=== PATIENT | male | born 1960 | race Caucasian/White ===

== ENCOUNTER 2023-02-08 10:15 | Day surgery (SDC) | payer OTHER ==
[2023-01-24 17:24] VITALS: BMI 35.2
[~2023-02-08 10:15] MED LIST: CEFAZOLIN SODIUM 2 GM in DEXTROSE 5%-WATER 100 ML IVPB ONE; TRANEXAMIC ACID 1000 MG/10 ML VIAL IVPUSH ONE
[2023-02-08] MEDS: CELECOXIB 200 MG CAPSULE PO ONE ×2 (11:10→21:03)
[2023-02-08] MEDS: GABAPENTIN 300 MG CAPSULE PO ONE ×2 (11:10→21:03)
[2023-02-08] MEDS ORDERED: BUPIVACAINE LIPOSOME/PF (EXPAREL) 266 MG/20 ML VIAL ONE (11:23)
[2023-02-08] MEDS ORDERED: BUPIVACAINE HCL/PF 0.5% (5MG/ML) 10 ML VIAL ONE ×2 (11:23)
[2023-02-08] MEDS ORDERED: ACETAMINOPHEN INJECTION 100 ML IVPB ONE (11:23)
[2023-02-08] MEDS ORDERED: MIDAZOLAM HCL 2 MG/2 ML SINGLE DOSE VIAL ONE ×3 (11:43→13:26)
[2023-02-08] MEDS ORDERED: VANCOMYCIN 1,000 MG VIAL (RESTRICTED TO ID ONLY) ONE (12:17)
[2023-02-08] MEDS ORDERED: ceFAZolin SODIUM 1 GM VIAL ONE ×2 (12:17→12:58)
[2023-02-08] MEDS ORDERED: ONDANSETRON 4 MG/2 ML VIAL IVPUSH PRN (12:24)
[2023-02-08] MEDS ORDERED: LACTATED RINGERS SOLUTION 1,000 ML IV SCH ×2 (12:30→15:00)
[2023-02-08] MEDS ORDERED: ALBUTEROL SO4 HFA INHALER IH PRN (14:46)
[2023-02-08] MEDS: ACETAMINOPHEN 325 MG TABLET (FP) PO PRN (15:40)
[2023-02-08] MEDS: oxyCODONE HCL 5 MG TABLET PO PRN ×3 (15:40→21:03)
[2023-02-08] MEDS: CEFAZOLIN SODIUM 2 GM in DEXTROSE 5%-WATER 100 ML IVPB SCH (21:02)
[2023-02-08] MEDS: SENNOSIDES/DOCUSATE COMBO (SENNA PLUS) TABLET (UD) PO SCH (21:02)
[2023-02-08] MEDS: ATORVASTATIN CA 10 MG TABLET (FP) PO SCH (21:03)
[2023-02-08] MEDS ORDERED: SODIUM CHLORIDE 100 ML IVPB ONE (22:58)
[2023-02-09] MEDS: ACETAMINOPHEN 325 MG TABLET (FP) PO PRN ×2 (01:32→07:30)
[2023-02-09] MEDS: oxyCODONE HCL 5 MG TABLET PO PRN ×5 (01:32→21:21)
[2023-02-09] MEDS ORDERED: HYDROmorphone HCl 2 MG/ML VIAL ONE (03:28)
[2023-02-09] MEDS ORDERED: HYDROmorphone HCl 2 MG/ML VIAL IVPB PRN (03:35)
[2023-02-09] MEDS: CEFAZOLIN SODIUM 2 GM in DEXTROSE 5%-WATER 100 ML IVPB SCH (05:50)
[2023-02-09] MEDS: ASPIRIN 325 MG TABLET PO SCH (07:30)
[2023-02-09 08:33] LABS: HEMATOCRIT 40.6 % (35.4-49); HEMOGLOBIN 13.5 G/dL (11.7-16.9); MCHC 33.3 g/dl (32.0-35.9); MEAN CELL VOLUME 93.3 fl (80-96); MEAN PLT VOLUME 9.6 fl (7.5-11.1); RBC 4.35 10^6/uL (4.00-5.60); RDW 14.3 % (11.9-15.9); WHITE BLOOD COUNT 8.9 10^3/uL (4.0-10.8)
[2023-02-09] MEDS: SENNOSIDES/DOCUSATE COMBO (SENNA PLUS) TABLET (UD) PO SCH ×2 (09:11→21:21)
[2023-02-09] MEDS: PANTOPRAZOLE 40 MG TABLET PO SCH (09:11)
[2023-02-09] MEDS: MULTIVITAMINS (DAILY MVI) TABLET (FP) PO SCH (09:11)
[2023-02-09] MEDS: prednisoLONE ACETATE 1% OPHTH SUSP 5 ML BOTTLE OS SCH (10:58)
[2023-02-09] MEDS: ATORVASTATIN CA 10 MG TABLET (FP) PO SCH (21:21)
[2023-02-09 22:24] VITALS: RESP 17
[2023-02-10] MEDS: ACETAMINOPHEN 325 MG TABLET (FP) PO PRN (08:11)
[2023-02-10] MEDS: ASPIRIN 325 MG TABLET PO SCH (08:12)
[2023-02-10 08:26] LABS: HEMATOCRIT 38.2 % (35.4-49); HEMOGLOBIN 12.6 G/dL (11.7-16.9); MCHC 33.1 g/dl (32.0-35.9); MEAN CELL VOLUME 93.7 fl (80-96); MEAN PLT VOLUME 9.5 fl (7.5-11.1); PLATELET COUNT 146.9 10^3/uL (134-434); RBC 4.08 10^6/uL (4.00-5.60); RDW 14.2 % (11.9-15.9)
[2023-02-10 10:07] VITALS: TEMP 98.6
[2023-02-10] MEDS: MULTIVITAMINS (DAILY MVI) TABLET (FP) PO SCH (10:22)
[2023-02-10] MEDS: PANTOPRAZOLE 40 MG TABLET PO SCH (10:22)
[2023-02-10] MEDS: oxyCODONE HCL 5 MG TABLET PO PRN (10:23)
[2023-02-10] MEDS: prednisoLONE ACETATE 1% OPHTH SUSP 5 ML BOTTLE OS SCH (10:24)
[2023-02-10] MEDS: SENNOSIDES/DOCUSATE COMBO (SENNA PLUS) TABLET (UD) PO SCH (10:24)
[2023-02-10] MEDS: ATORVASTATIN CA 10 MG TABLET (FP) PO SCH (12:08)
[2023-02-10 14:21] VITALS: BP 126/47; PULSE 66
== END 2023-02-10 14:37 ==
LOC: FASUSAT 10:15 → FM/S 15:40 → FASUSAT 02-10 14:37
PROVIDERS: ATTEND Orthopaedic Surgery
PROC: 8E0Y0CZ Robotic Assisted Procedure of Lower Extremity, Open Approach (ICD-10-PCS; 2023-02-08)
PROC: 0SRD0JA Replacement of Left Knee Joint with Synthetic Substitute, Uncemented, Open Approach (ICD-10-PCS; principal; 2023-02-08 13:13)
DX: M17.12 Unilateral primary osteoarthritis, left knee (principal); J45.909 Unspecified asthma, uncomplicated; E66.9 Obesity, unspecified; Z68.35 Body mass index [BMI] 35.0-35.9, adult; Z87.891 Personal history of nicotine dependence
CPT/HCPCS: 20985; 27447; C1776; S2900; 36415; 73560-TC-LT-FY; 85027; 94760; 97010-GP; 97116-GP; 97162-GP; C1713

== ENCOUNTER 2023-07-19 07:06 | Day surgery (SDC) | payer OTHER ==
[2023-07-14 17:14] VITALS: BMI 35.2
[2023-07-19] MEDS ORDERED: BUPIVACAINE HCL/PF 0.5% (5 MG/ML) 30 ML VIAL IJ ONE (08:05)
[2023-07-19] MEDS ORDERED: BUPIVACAINE LIPOSOME/PF (EXPAREL) 266 MG/20 ML VIAL ONE (08:06)
[2023-07-19] MEDS ORDERED: MIDAZOLAM HCL 2 MG/2 ML SINGLE DOSE VIAL ONE ×3 (08:06→10:50)
[2023-07-19] MEDS ORDERED: VANCOMYCIN 1,000 MG VIAL (RESTRICTED TO ID ONLY) ONE (08:22)
[2023-07-19] MEDS ORDERED: ceFAZolin SODIUM 1 GM VIAL ONE ×2 (08:23→09:45)
[2023-07-19] MEDS ORDERED: DEXAMETHASONE SOD PHOSPHATE/PF 10 MG/ML SDV ONE (08:44)
[2023-07-19] MEDS ORDERED: BUPIVACAINE HCL/PF 0.5% (5MG/ML) 10 ML VIAL ONE (09:18)
[2023-07-19] MEDS ORDERED: PROPOFOL 40 ML ONE (09:19)
[2023-07-19] MEDS ORDERED: CEFAZOLIN 2 GM in DEXTROSE 5%-WATER - 50 ML IVPB ONE (09:30)
[2023-07-19] MEDS ORDERED: TRANEXAMIC ACID 1000 MG/10 ML VIAL IVPUSH ONE (09:30)
[2023-07-19] MEDS ORDERED: ONDANSETRON 4 MG/2 ML VIAL ONE (10:14)
[2023-07-19] MEDS ORDERED: ePHEDrine SULFATE 50 MG/1 ML AMPULE ONE (10:14)
[2023-07-19] MEDS ORDERED: PHENYLEPHRINE HCL 10 MG/1 ML SINGLE DOSE VIAL ONE (10:17)
[2023-07-19] MEDS ORDERED: ONDANSETRON 4 MG/2 ML VIAL IVPUSH PRN ×2 (11:28→11:38)
[2023-07-19] MEDS ORDERED: MAG HYDROX/AL HYDROX/SIMETH 30 ML UNIT-DOSE CUP PO PRN (11:28)
[2023-07-19] MEDS ORDERED: ALBUTEROL SO4 HFA INHALER IH PRN (11:28)
[2023-07-19] MEDS ORDERED: LACTATED RINGERS SOLUTION 1,000 ML IV SCH ×2 (11:30→11:45)
[2023-07-19] MEDS ORDERED: ACETAMINOPHEN 1000 MG/100 ML BAG IVPB ONE (11:38)
[2023-07-19] MEDS ORDERED: oxyCODONE HCL 5 MG TABLET PO PRN (11:38)
[2023-07-19] MEDS: KETOROLAC TROMETHAMINE 30 MG/1 ML VIAL IVPUSH SCH ×2 (14:45→21:26)
[2023-07-19] MEDS: CEFAZOLIN 3 GM in DEXTROSE 5%-WATER - 100 ML IVPB SCH (17:29)
[2023-07-19] MEDS: ACETAMINOPHEN 500 MG TABLET (FP) PO SCH ×2 (18:47→23:49)
[2023-07-19] MEDS: oxyCODONE HCL 10 MG SUSTAINED ACTING TABLET PO SCH (21:27)
[2023-07-19] MEDS: SENNOSIDES/DOCUSATE COMBO (SENNA PLUS) TABLET (UD) PO SCH (21:28)
[2023-07-19] MEDS: oxyCODONE HCL 5 MG TABLET PO PRN (23:48)
[2023-07-20] MEDS: CEFAZOLIN 3 GM in DEXTROSE 5%-WATER - 100 ML IVPB SCH (01:13)
[2023-07-20] MEDS: oxyCODONE HCL 5 MG TABLET PO PRN ×2 (06:24→12:39)
[2023-07-20] MEDS: ACETAMINOPHEN 500 MG TABLET (FP) PO SCH ×2 (06:24→12:39)
[2023-07-20] MEDS ORDERED: ASPIRIN 325 MG TABLET PO SCH (08:00)
[2023-07-20 08:05] LABS: HEMATOCRIT 37.7 % (35.4-49); HEMOGLOBIN 12.5 G/dL (11.7-16.9); MCH 30.8 pg (25.7-33.7); MCHC 33.2 g/dl (32.0-35.9); MEAN CELL VOLUME 92.9 fl (80-96); PLATELET COUNT 159.2 10^3/uL (134-434); RBC 4.06 10^6/uL (4.00-5.60); RDW 14.3 % (11.9-15.9); WHITE BLOOD COUNT 12.7 10^3/uL (4.0-10.8)
[2023-07-20] MEDS: SENNOSIDES/DOCUSATE COMBO (SENNA PLUS) TABLET (UD) PO SCH (09:23)
[2023-07-20] MEDS: oxyCODONE HCL 10 MG SUSTAINED ACTING TABLET PO SCH (09:24)
[2023-07-20] MEDS ORDERED: prednisoLONE ACETATE 1% OPHTH SUSP 5 ML BOTTLE OS SCH ×2 (10:00)
[2023-07-20] MEDS ORDERED: PANTOPRAZOLE 40 MG TABLET PO SCH (10:00)
[2023-07-20] MEDS ORDERED: MULTIVITAMINS (DAILY MVI) TABLET (FP) PO SCH (10:00)
[2023-07-20 13:30] VITALS: BP 126/65; PULSE 72; RESP 18; TEMP 97.6
[2023-07-20] MEDS ORDERED: ATORVASTATIN CA 10 MG TABLET (FP) PO SCH (22:00)
== END 2023-07-20 14:57 ==
LOC: FASUSAT 07:06 → FM/S 14:12 → FASUSAT 07-20 14:57
PROVIDERS: ATTEND Orthopaedic Surgery
PROC: 8E0Y0CZ Robotic Assisted Procedure of Lower Extremity, Open Approach (ICD-10-PCS; 2023-07-19)
PROC: 0SR90JA Replacement of Right Hip Joint with Synthetic Substitute, Uncemented, Open Approach (ICD-10-PCS; principal; 2023-07-19 10:07)
DX: M16.11 Unilateral primary osteoarthritis, right hip (principal)
CPT/HCPCS: 20985; 27130; C1776; S2900; 36415; 73502-TC-RT-FY; 85027; 87635; 94760; 97010-GP; 97116-GP; 97161-GP